=== PATIENT | male | born 1975 | race Caucasian/White ===

== ENCOUNTER → 2018-08-08 | Outpatient (CLI) | payer BC ==
[~2018-08-08] MED LIST: ALLOPURINOL 30300 M1 PO; ALLOPURINOL 30300 M2 PO; ALPRAZOLAM2 MG PO; AMITRIPTYLINE H25 M2 PO; AVONEX ADMIN P30 MCG IM; BENTYL20 MG PO; CLEOCIN HCL150 MG PO; CLONAZEPAM 1 MG1 M1 PO; D3 + K2 DOTS 11 EACH PO; DIOVAN320 MG PO; ENDOCET 5-3251 EACH PO; FLAGYL500 MG PO; FLEXERIL PO; INDOMETHACIN 2525 MG PO; LIDODERM 5%1 PATC1 TOP; LISINOPRIL10 MG PO; LYRICA 50 MG50 MG PO; MITIGARE0.6 MG PO; MODAFINIL100 MG PO; NOHOMEMEDICATIONS; NORCO 5-325 TA1 EACH PO; OMEPRAZOLE 20 M20 M1 PO; PERCOCET 10-321 EACH; PERCOCET 5-3251 EACH PO; PREDNISONE 20 M20 MG PO; SIMVASTATIN10 MG PO; TRAMADOL 50 MG50 MG PO; ULORIC80 MG PO; XANAX 0.25 MG0.25 MG PO; ZOLPIDEM TARTRA10 MG PO
== END ==
LOC: M.ULTRA 11:57
DX: R60.0 Localized edema (principal)

== ENCOUNTER 2019-02-08 06:02 | Emergency (ER) | payer BC ==
[~2019-02-08] VITALS: Ht 182.9 cm; Wt 104.9 kg
[2019-02-08 06:42] LABS: CALCIUM 8.7 mg/dL (8.5-10.1); CREATININE 1.3 mg/dL (0.6-1.3); POTASSIUM 3.6 mmol/L (3.5-5.1); URIC ACID* 8.7 mg/dL (2.6-7.2)
[2019-02-08] MEDS ORDERED: IBUPROFEN 800800 M1 PO ×2 (06:44→06:46)
[2019-02-08] MEDS ORDERED: HYDROCODONE-AP1 EAC6 PO (06:44)
[2019-02-08 06:57] VITALS: BP 132/82
== END 2019-02-08 06:59 | disposition home or self-care (01) ==
LOC: M.ERS 06:02
PROVIDERS: Emergency Medicine Emergency Medical Services
DX: M10.061 Idiopathic gout, right knee (principal); M19.90 Unspecified osteoarthritis, unspecified site; F17.210 Nicotine dependence, cigarettes, uncomplicated